=== PATIENT | female | born 1990 | race Caucasian/White ===

== ENCOUNTER 2017-12-12 22:48 | Emergency (ER) | payer OTHER ==
[~2017-12-12] VITALS: Ht 170.2 cm; Wt 83.9 kg
[2017-12-12 23:44] LABS: ABSOLUTE NEUTROPHILS 10.4 thou/uL (1.4-8.2); BASOPHILS 0.7 % (0.0-2.0); EOSINOPHILS 0.8 % (0.0-3.0); HEMATOCRIT 29.7 % (37.0-47.0); HEMOGLOBIN 10.4 gm/dL (12.0-15.0); LYMPHOCYTES 23.5 % (24.0-44.0); MCH 30.2 pg (26.0-34.0); MCHC 34.9 g/dL (28.0-37.0); MCV 86.6 fL (80.0-100.0); MONOCYTES 5.5 % (1.0-8.0); PLATELET COUNT 464 thou/uL (150-400); POLYS 69.5 % (36.0-66.0); RBC 3.43 mil/uL (4.20-5.00); RDW 14.5 % (10.5-14.5)
[2017-12-12 23:51] LABS: CALCIUM 8.5 mg/dL (8.5-10.1); CREATININE 0.6 mg/dL (0.6-1.0); POTASSIUM 3.4 mmol/L (3.5-5.1)
[2017-12-13] MEDS ORDERED: NORCO 5-325 TA1 EACH PO (02:55)
[2017-12-13] MEDS ORDERED: BACTRIM DS TAB1 EACH PO (02:55)
== END 2017-12-13 03:13 | disposition home or self-care (01) ==
LOC: ER 22:48
PROVIDERS: Emergency Medicine
DX: S91.302A Unspecified open wound, left foot, initial encounter (principal); S91.301A Unspecified open wound, right foot, initial encounter; F17.210 Nicotine dependence, cigarettes, uncomplicated; W34.00XA Accidental discharge from unspecified firearms or gun, initial encounter; Y93.89 Activity, other specified; Y92.89 Other specified places as the place of occurrence of the external cause; Y99.8 Other external cause status

== ENCOUNTER 2019-12-25 00:59 | Emergency (ER) | payer OTHER ==
[~2019-12-25] VITALS: Ht 170.2 cm; Wt 90.7 kg
[~2019-12-25 00:59] MED LIST: BACTRIM DS TAB1 EACH PO; NORCO 5-325 TA1 EACH PO
[2019-12-25 01:58] VITALS: BP 116/72
--- NOTE | 2019-12-25 07:58 | EKG ---
[place] [address] [address] [facility] [place] [address] ELECTROCARDIOGRAM REPORT Name: EMANUEL BRITTON Heather [id number] Admission: 12/25/19 Attend Phys: Discharge: 12/25/19 Date of : 89 Report #: [id number] THIS REPORT FOR: //name// [facility] ED Test Date: 2019-12-25 Test Time: 01:13:51 Pat Name: EMANUEL RBITTON Department: Room: Gender: F [employer]: : 1990 Requested By: Yisel Zaragoza Order Number: [id number] MD: James Grossman Measurements Intervals [place] Rate: 84 P: 48 MO: 127 QRS: 62 QRSD: 101 T: 41 QT: 372 QTc: 440 Interpretive Statements Sinus rhythm Normal tracing No previous ECG available for comparison Electronically Signed On 12-25-2019 7:57:36 [employer] by James Grossman [email or web address] <ELECTRONICALLY SIGNED> By: James Grossman MD, [facility] 12/25/19 [id number] James Grossman MD, FACC /EPI
== END 2019-12-25 02:00 | disposition home or self-care (01) ==
LOC: ER 00:59
DX: R07.89 Other chest pain (principal); F17.210 Nicotine dependence, cigarettes, uncomplicated